=== PATIENT | male | born 1970 | race African-American/Black ===

== ENCOUNTER 2018-09-30 03:02 | Emergency (ER) | payer MEDICAID ==
[~2018-09-30] VITALS: Ht 167.6 cm; Wt 71.0 kg
[2018-09-30] MEDS ORDERED: TETANUS, DIPHTHERIA, PERTUSSIS VAC/PF 0.5ML (>7YR OLD) IM ONE (04:30)
[2018-09-30] MEDS ORDERED: ACETAMINOPHEN 325MG TABLET PO ONE (04:30)
[2018-09-30] MEDS ORDERED: LIDOCAINE HCL 2%/EPINEPHRINE/PF 10 ML VIAL INFIL ONE (05:15)
[2018-09-30 07:35] VITALS: BP 159/86
== END 2018-09-30 07:37 | disposition home or self-care (01) ==
LOC: ER 03:02
DX: S80.212A Abrasion, left knee, initial encounter (principal); W54.0XXA Bitten by dog, initial encounter; Y93.89 Activity, other specified; Y92.89 Other specified places as the place of occurrence of the external cause; Y99.8 Other external cause status
CPT/HCPCS: 12002; 90471; 90715; 99283; J3490

== ENCOUNTER 2018-10-04 10:39 | Emergency (ER) | payer SELFPAY ==
[~2018-10-04] VITALS: Ht 167.6 cm; Wt 80.0 kg
[2018-10-04 10:54] VITALS: BP 115/75
[2018-10-04] MEDS ORDERED: BACITRACIN ZINC OINT UDPKT TOP ONE (12:30)
== END 2018-10-04 13:11 | disposition home or self-care (01) ==
LOC: ER 12:55
DX: Z48.00 Encounter for change or removal of nonsurgical wound dressing (principal)
CPT/HCPCS: 99283

== ENCOUNTER 2018-10-08 11:41 | Emergency (ER) | payer SELFPAY ==
[~2018-10-08] VITALS: Ht 167.6 cm; Wt 73.0 kg
[2018-10-08] MEDS ORDERED: BACITRACIN ZINC OINT UDPKT TOP ONE (13:30)
[2018-10-08 13:34] VITALS: BP 122/70
== END 2018-10-08 13:35 | disposition home or self-care (01) ==
LOC: ER 13:30
DX: Z48.02 Encounter for removal of sutures (principal); Z48.00 Encounter for change or removal of nonsurgical wound dressing
CPT/HCPCS: 99283

== ENCOUNTER 2018-10-13 23:41 | Emergency (ER) | payer SELFPAY ==
[~2018-10-13] VITALS: Ht 167.6 cm; Wt 70.9 kg
[2018-10-14 04:45] VITALS: BP 126/85
== END 2018-10-14 04:45 | disposition home or self-care (01) ==
LOC: ER 23:41
DX: S81.811D Laceration without foreign body, right lower leg, subsequent encounter (principal); X58.XXXD Exposure to other specified factors, subsequent encounter; Z98.890 Other specified postprocedural states
CPT/HCPCS: 99283

== ENCOUNTER 2018-12-23 17:50 | Emergency (ER) | payer SELFPAY ==
[~2018-12-23] VITALS: Ht 167.6 cm; Wt 73.0 kg
[2018-12-23 17:55] VITALS: BP 145/86
== END 2018-12-23 20:49 | disposition left against medical advice (07) ==
LOC: ER 17:50
DX: J02.9 Acute pharyngitis, unspecified (principal); Z53.21 Procedure and treatment not carried out due to patient leaving prior to being seen by health care provider